=== PATIENT | male | born 1970 | race Caucasian/White ===

== ENCOUNTER 2019-09-27 22:06 | Observation (INO) ==
[2019-09-27] MEDS ORDERED: ALUM/MAG/SIMETH/LIDO VISC 1:1 30 ML BOTTLE PO STA (22:29)
[2019-09-27] MEDS ORDERED: SODIUM CHLORIDE 0.9% 500 ML IV STA (22:29)
[2019-09-27] MEDS ORDERED: PANTOPRAZOLE 40 MG VIAL IV STA (22:29)
[2019-09-27] MEDS ORDERED: HYDROmorphone 2 MG/1 ML VIAL IV STA (22:29)
[2019-09-27] MEDS ORDERED: ONDANSETRON 4 MG/2 ML VIAL IV STA (22:29)
[2019-09-27 22:36] LABS: Basophils % 0.5 % (0.0-0.8); Eosinophils # 0.1 10*3/uL (0.0-0.87); Eosinophils % 1.2 % (0.00-10.9); Hemoglobin 14.1 GM/DL (14.0-18.0); Immature Granulocytes % 0.1 %; Immature Granulocytes Absolute 0.01 #; Lymphocytes # 2.5 10*3/uL (1.4-4.0); Lymphocytes % 33.7 % (21.2-54.2); Mean Corpuscular HGB Conc 32.8 GM/DL (32-36); Mean Corpuscular Volume 88.3 FL (87-102); Monocytes % 11.2 % (1.7-12.7); Neutrophils % 53.3 % (38.7-73.9); Platelet Count 235 T/CUMM (130-400); Red Blood Count 4.87 MC/CUMM (3.8-5.5); Red Cell Distribution Width 12.5 % (9.3-17.3); White Blood Count 7.4 T/CUMM (4-12)
[2019-09-27] MEDS ORDERED: KETOROLAC 30 MG/1 ML VIAL ONE (22:37)
[2019-09-27] MEDS ORDERED: KETOROLAC 30 MG/1 ML VIAL IV STA (22:38)
[2019-09-27 22:57] LABS: Alanine Aminotransferase 33 U/L (16-61); Albumin 3.9 G/DL (3.4-5.0); Alkaline Phosphatase 80 U/L (45-117); Amylase 35 U/L (25-115); Aspartate Amino Transferase 22 U/L (0-37); Blood Urea Nitrogen 26 MG/DL (7-18); Calcium 8.4 MG/DL (8.5-10.1); Estimated Glom Filtration Rate 75 ML/MIN; Glucose 107 MG/DL (74-106); Osmolality,Calculated 283.4 MOS/KG (273-304); Total Protein 7.5 G/DL (6.4-8.3); Troponin I < 0.015 NG/ML (0.00-0.045)
[2019-09-27 23:24] LABS: Apearance,Urine Clear (Clear); Urine Color Yellow (Yellow); Urine Specific Gravity 1.031 (1.001-1.035)
[2019-09-27 23:25] LABS: Bilirubin,Urine Negative (Negative); Blood, Urine Negative (Negative); Glucose,Urine (UA) Negative (Negative); Ketones,Urine Negative (Negative); Nitrite,Urine Negative (Negative); Protein,Urine Negative; Urine Urobilinogen 0.2 EU/DL (0.2-1.0)
[2019-09-28] MEDS ORDERED: POTASSIUM CHLORIDE 20 MEQ TABLET PO STA (00:05)
[2019-09-28] MEDS ORDERED: ONDANSETRON 4 MG/2 ML VIAL IV PRN (01:03)
[2019-09-28] MEDS ORDERED: HYDROmorphone 2 MG/1 ML VIAL IV PRN (01:03)
[2019-09-28] MEDS ORDERED: ACETAMINOPHEN 325 MG TABLET PO PRN (01:03)
[2019-09-28] MEDS: SODIUM CHLORIDE 0.9% 1,000 ML IV SCH ×3 (01:30→18:01)
[2019-09-28 06:30] LABS: Basophils % 0.5 % (0.0-0.8); Eosinophils # 0.1 10*3/uL (0.0-0.87); Eosinophils % 1.5 % (0.00-10.9); Hematocrit 40.1 VOL% (42.0-52.0); Immature Granulocytes % 0.4 %; Immature Granulocytes Absolute 0.02 #; Lymphocytes # 2.1 10*3/uL (1.4-4.0); Mean Corpuscular HGB Conc 32.4 GM/DL (32-36); Mean Corpuscular Volume 89.9 FL (87-102); Mean Platelet Volume 11.2 FL (9.6-12.0); Monocytes % 11.3 % (1.7-12.7); Neutrophils % 48.3 % (38.7-73.9); Platelet Count 193 T/CUMM (130-400); Red Blood Count 4.46 MC/CUMM (3.8-5.5); Red Cell Distribution Width 12.6 % (9.3-17.3); White Blood Count 5.5 T/CUMM (4-12)
[2019-09-28 07:12] LABS: Albumin 3.4 G/DL (3.4-5.0); Bilirubin,Total 0.9 MG/DL (0.2-1.0); Calcium 7.9 MG/DL (8.5-10.1); Total Protein 6.4 G/DL (6.4-8.3)
[2019-09-28] MEDS ORDERED: cefOXitin 2,000 MG in SYRINGE 1 EACH IV ONE (07:24)
[2019-09-28] MEDS ORDERED: PANTOPRAZOLE 40 MG VIAL IV SCH (09:00)
[2019-09-28] MEDS ORDERED: TISSUE ADHESIVE 1 EACH APPLICATOR TOP ONE (10:23)
[2019-09-28] MEDS ORDERED: LIDOCAINE 1%/EPI INJ 20 ML VIAL ONE (10:24)
[2019-09-28] MEDS ORDERED: propofoL 200 MG/20 ML VIAL IV ONE (11:54)
[2019-09-28] MEDS ORDERED: LIDOCAINE 2% 5 ML VIAL ONE (11:54)
[2019-09-28] MEDS ORDERED: fentaNYL 100 MCG/2 ML VIAL ONE (11:54)
[2019-09-28] MEDS ORDERED: SEVOFLURANE 1 UNIT/15 MINUTE INH ONE (11:54)
[2019-09-28] MEDS ORDERED: MIDAZOLAM 2 MG/2 ML VIAL ONE (11:54)
[2019-09-28] MEDS ORDERED: KETOROLAC 30 MG/1 ML VIAL ONE (11:55)
[2019-09-28] MEDS ORDERED: NEOSTIGMINE 10 MG/10 ML VIAL ONE (11:55)
[2019-09-28] MEDS ORDERED: SUCCINYLCHOLINE 200 MG/10 ML VIAL ONE (11:55)
[2019-09-28] MEDS ORDERED: GLYCOPYRROLATE 0.4 MG/2 ML VIAL ONE (11:55)
[2019-09-28] MEDS ORDERED: ROCURONIUM 100 MG/10 ML VIAL IV ONE (11:55)
[2019-09-28] MEDS ORDERED: ONDANSETRON 4 MG/2 ML VIAL ONE (11:55)
[2019-09-28 16:37] VITALS: BP 126/73
== END 2019-09-28 18:55 | disposition home or self-care (01) ==
LOC: N.EDINP 22:06 → N.ED 22:06 → N.TELEN 09-28 00:58
PROVIDERS: ADMIT Surgery; ATTEND Surgery
PROC: LAPCHOL (2019-09-28 10:55)

== ENCOUNTER 2021-02-27 16:21 | Inpatient (IN) ==
[2021-02-27] MEDS ORDERED: ACETAMINOPHEN 500 MG TABLET PO STA (23:18)
[2021-02-27] MEDS ORDERED: SODIUM CHLORIDE 0.9% 500 ML IV STA (23:18)
[2021-02-27] MEDS ORDERED: PIPERACILLIN/TAZOBACTAM 3,375 MG in SODIUM CHLORIDE 0.9% 100 ML IV STA (23:34)
[2021-02-27 23:58] LABS: Basophils % 0.3 % (0.0-0.8); Eosinophils # 0.1 10*3/uL (0.0-0.87); Eosinophils % 1.4 % (0.00-10.9); Hematocrit 36.4 VOL% (42.0-52.0); Hemoglobin 12.1 GM/DL (14.0-18.0); Immature Granulocytes % 0.4 %; Immature Granulocytes Absolute 0.04 #; Lymphocytes # 1.3 10*3/uL (1.4-4.0); Lymphocytes % 12.9 % (21.2-54.2); Mean Corpuscular HGB Conc 33.2 GM/DL (32-36); Mean Corpuscular Volume 85.6 FL (87-102); Mean Platelet Volume 10.7 FL (9.6-12.0); Monocytes % 14.3 % (1.7-12.7); Neutrophils % 70.7 % (38.7-73.9); Platelet Count 350 T/CUMM (130-400); Red Blood Count 4.25 MC/CUMM (3.8-5.5); Red Cell Distribution Width 12.5 % (9.3-17.3); White Blood Count 9.7 T/CUMM (4-12)
[2021-02-28 00:29] LABS: Bacteria,Urine Occasional /HPF (Few); Blood, Urine Negative (Negative); Glucose,Urine (UA) Negative (Negative); Ketones,Urine 20 mg/dL (Negative); Mucus,Urine Many /LPF (Occasional); Nitrite,Urine Negative (Negative); Protein,Urine 100 MG/DL; RBC,Urine 10 /HPF (0-4); Squamous Epithelial Cell,Urine Occasional /HPF (0-10); Urine Appearance CLEAR (Clear); Urine Color Amber (Yellow); Urine Specific Gravity 1.025 (1.001-1.035)
[2021-02-28 00:29] LABS: Albumin 2.6 G/DL (3.4-5.0); Calcium 8.2 MG/DL (8.5-10.1); Osmolality,Calculated 270.1 MOS/KG (273-304); Potassium 3.3 MMOL/L (3.5-5.1); Total Protein 7.1 G/DL (6.4-8.2)
[2021-02-28 00:32] LABS: Bilirubin,Urine Small mg/dL (Negative)
[2021-02-28 01:01] LABS: Sedimentation Rate-Westergren 87 MM/HR (0-20)
[2021-02-28] MEDS ORDERED: ENOXAPARIN 100 MG/ML SYRINGE SUBCUT STA (02:08)
[2021-02-28] MEDS ORDERED: GLUCAGON 1 MG VIAL IM PRN (02:43)
[2021-02-28] MEDS ORDERED: guaiFENesin/DM ER 600-30 MG TABLET PO PRN (02:45)
[2021-02-28] MEDS ORDERED: MORPHINE 2 MG/1 ML SYRINGE IV PRN (02:45)
[2021-02-28] MEDS ORDERED: ONDANSETRON 4 MG/2 ML VIAL IV PRN (02:45)
[2021-02-28] MEDS ORDERED: SIMETHICONE CHEW 125 MG TABLET PO PRN (02:45)
[2021-02-28] MEDS ORDERED: guaiFENesin/CODEINE 5 ML LIQUID PO PRN (02:51)
[2021-02-28] MEDS ORDERED: DEXTROSE 50% 25 GM/50 ML SYRINGE IV PRN (02:57)
[2021-02-28 02:59] LABS: INR 1.1; PT Patient Result 12.2 SECS (10.5-12.0); Partial Thromboplastin Time 22.5 SECS (23.8-32.1)
[2021-02-28] MEDS: SODIUM CHLORIDE 0.9% 1,000 ML IV SCH ×3 (03:03→22:40)
[2021-02-28] MEDS: DOCUSATE SODIUM 100 MG CAPSULE PO SCH ×3 (03:03→23:17)
[2021-02-28 04:46] LABS: Basophils % 0.1 % (0.0-0.8); Eosinophils # 0.2 10*3/uL (0.0-0.87); Eosinophils % 1.7 % (0.00-10.9); Hematocrit 35.5 VOL% (42.0-52.0); Hemoglobin 11.6 GM/DL (14.0-18.0); Immature Granulocytes % 0.4 %; Immature Granulocytes Absolute 0.04 #; Lymphocytes # 1.5 10*3/uL (1.4-4.0); Lymphocytes % 15.5 % (21.2-54.2); Mean Corpuscular HGB Conc 32.7 GM/DL (32-36); Mean Corpuscular Volume 87.2 FL (87-102); Mean Platelet Volume 10.9 FL (9.6-12.0); Monocytes % 15.4 % (1.7-12.7); Neutrophils % 66.9 % (38.7-73.9); Platelet Count 333 T/CUMM (130-400); Red Blood Count 4.07 MC/CUMM (3.8-5.5); Red Cell Distribution Width 12.4 % (9.3-17.3); White Blood Count 9.4 T/CUMM (4-12)
[2021-02-28 05:16] LABS: Calcium 8.3 MG/DL (8.5-10.1); Potassium 3.3 MMOL/L (3.5-5.1)
[2021-02-28] MEDS: PIPERACILLIN/TAZOBACTAM 3,375 MG in SODIUM CHLORIDE 0.9% 100 ML IV SCH ×2 (08:25→18:00)
[2021-02-28] MEDS: PANTOPRAZOLE 40 MG TABLET PO SCH (09:45)
[2021-02-28] MEDS: ENOXAPARIN 100 MG/ML SYRINGE SUBCUT SCH (18:00)
[2021-02-28] MEDS ORDERED: REMDESIVIR 200 MG in SODIUM CHLORIDE 0.9% 210 ML IV ONE (18:30)
[2021-02-28] MEDS: ACETAMINOPHEN 325 MG TABLET PO PRN (21:07)
[2021-03-01] MEDS: PIPERACILLIN/TAZOBACTAM 3,375 MG in SODIUM CHLORIDE 0.9% 100 ML IV SCH ×3 (02:09→15:36)
[2021-03-01] MEDS: ENOXAPARIN 100 MG/ML SYRINGE SUBCUT SCH (05:42)
[2021-03-01 06:04] LABS: Basophils % 0.2 % (0.0-0.8); Eosinophils # 0.1 10*3/uL (0.0-0.87); Eosinophils % 0.9 % (0.00-10.9); Hematocrit 33.5 VOL% (42.0-52.0); Hemoglobin 10.8 GM/DL (14.0-18.0); Immature Granulocytes % 0.6 %; Immature Granulocytes Absolute 0.07 #; Lymphocytes # 1.2 10*3/uL (1.4-4.0); Lymphocytes % 10.7 % (21.2-54.2); Mean Corpuscular HGB Conc 32.2 GM/DL (32-36); Mean Corpuscular Volume 87.2 FL (87-102); Mean Platelet Volume 10.8 FL (9.6-12.0); Monocytes % 10.6 % (1.7-12.7); Platelet Count 352 T/CUMM (130-400); Red Blood Count 3.84 MC/CUMM (3.8-5.5); Red Cell Distribution Width 12.4 % (9.3-17.3); White Blood Count 10.8 T/CUMM (4-12)
[2021-03-01 06:20] LABS: Albumin 1.9 G/DL (3.4-5.0); Bilirubin,Total 1.1 MG/DL (0.20-1.00); Calcium 8.5 MG/DL (8.5-10.1); Osmolality,Calculated 270.8 MOS/KG (273-304); Potassium 3.3 MMOL/L (3.5-5.1); Total Protein 6.7 G/DL (6.4-8.2)
[2021-03-01 06:21] LABS: Ferritin 846.5 ng/mL (26-388)
[2021-03-01] MEDS: PANTOPRAZOLE 40 MG TABLET PO SCH (08:31)
[2021-03-01] MEDS: DOCUSATE SODIUM 100 MG CAPSULE PO SCH ×2 (08:35→22:25)
[2021-03-01] MEDS: POTASSIUM CHLORIDE 20 MEQ TABLET PO PRN ×3 (10:09→16:30)
[2021-03-01] MEDS: REMDESIVIR 100 MG in SODIUM CHLORIDE 0.9% 100 ML IV SCH (12:29)
[2021-03-01] MEDS: DEXAMETHASONE 4 MG TABLET PO SCH (15:35)
[2021-03-01] MEDS: ACETAMINOPHEN 325 MG TABLET PO PRN (16:54)
[2021-03-01] MEDS: APIXABAN 5 MG TABLET PO SCH (22:25)
[2021-03-01] MEDS: SODIUM CHLORIDE 0.9% 1,000 ML IV SCH ×2 (23:23→23:24)
[2021-03-02] MEDS: PIPERACILLIN/TAZOBACTAM 3,375 MG in SODIUM CHLORIDE 0.9% 100 ML IV SCH ×2 (00:07→09:18)
[2021-03-02 05:49] LABS: Basophils % 0.1 % (0.0-0.8); Hematocrit 33.3 VOL% (42.0-52.0); Hemoglobin 10.7 GM/DL (14.0-18.0); Immature Granulocytes % 0.7 %; Immature Granulocytes Absolute 0.08 #; Lymphocytes # 0.9 10*3/uL (1.4-4.0); Lymphocytes % 7.7 % (21.2-54.2); Mean Corpuscular HGB Conc 32.1 GM/DL (32-36); Mean Corpuscular Volume 88.1 FL (87-102); Mean Platelet Volume 10.6 FL (9.6-12.0); Monocytes % 7.9 % (1.7-12.7); Neutrophils % 83.6 % (38.7-73.9); Platelet Count 378 T/CUMM (130-400); Red Blood Count 3.78 MC/CUMM (3.8-5.5); Red Cell Distribution Width 12.6 % (9.3-17.3); White Blood Count 11.8 T/CUMM (4-12)
[2021-03-02 06:08] LABS: Albumin 1.9 G/DL (3.4-5.0); Bilirubin,Total 0.4 MG/DL (0.20-1.00); Calcium 8.1 MG/DL (8.5-10.1); Ferritin 910.3 ng/mL (26-388); Osmolality,Calculated 274.8 MOS/KG (273-304); Potassium 4.1 MMOL/L (3.5-5.1); Total Protein 6.8 G/DL (6.4-8.2)
[2021-03-02] MEDS: APIXABAN 5 MG TABLET PO SCH ×2 (09:21→21:55)
[2021-03-02] MEDS: PANTOPRAZOLE 40 MG TABLET PO SCH (09:21)
[2021-03-02] MEDS: DOCUSATE SODIUM 100 MG CAPSULE PO SCH ×2 (09:21→21:55)
[2021-03-02] MEDS: DEXAMETHASONE 4 MG TABLET PO SCH (09:24)
[2021-03-02] MEDS: DOXYCYCLINE HYCLATE 100 MG CAPSULE PO SCH ×2 (11:25→21:55)
[2021-03-02] MEDS: REMDESIVIR 100 MG in SODIUM CHLORIDE 0.9% 100 ML IV SCH (11:25)
[2021-03-02] MEDS: AZITHROMYCIN 250 MG TABLET PO SCH (11:25)
[2021-03-03 05:40] LABS: Basophils % 0.1 % (0.0-0.8); Eosinophils % 0.1 % (0.00-10.9); Hematocrit 31.9 VOL% (42.0-52.0); Hemoglobin 10.3 GM/DL (14.0-18.0); Immature Granulocytes % 0.6 %; Lymphocytes # 1.8 10*3/uL (1.4-4.0); Lymphocytes % 11.2 % (21.2-54.2); Mean Corpuscular HGB Conc 32.3 GM/DL (32-36); Mean Corpuscular Volume 89.6 FL (87-102); Mean Platelet Volume 10.7 FL (9.6-12.0); Monocytes % 9.2 % (1.7-12.7); Neutrophils % 78.8 % (38.7-73.9); Platelet Count 384 T/CUMM (130-400); Red Blood Count 3.56 MC/CUMM (3.8-5.5); Red Cell Distribution Width 12.7 % (9.3-17.3); White Blood Count 15.7 T/CUMM (4-12)
[2021-03-03 06:02] LABS: Ferritin 997.1 ng/mL (26-388)
[2021-03-03 06:03] LABS: Albumin 1.9 G/DL (3.4-5.0); Bilirubin,Total 0.6 MG/DL (0.20-1.00); Calcium 7.9 MG/DL (8.5-10.1); Osmolality,Calculated 282.1 MOS/KG (273-304); Potassium 3.8 MMOL/L (3.5-5.1); Total Protein 6.3 G/DL (6.4-8.2)
[2021-03-03] MEDS: SODIUM CHLORIDE 0.9% 1,000 ML IV SCH ×3 (07:53→19:40)
[2021-03-03] MEDS: DEXAMETHASONE 4 MG TABLET PO SCH (08:01)
[2021-03-03] MEDS: PANTOPRAZOLE 40 MG TABLET PO SCH (08:01)
[2021-03-03] MEDS: AZITHROMYCIN 250 MG TABLET PO SCH (08:01)
[2021-03-03] MEDS: APIXABAN 5 MG TABLET PO SCH ×2 (08:01→20:59)
[2021-03-03] MEDS: DOXYCYCLINE HYCLATE 100 MG CAPSULE PO SCH ×2 (08:01→20:59)
[2021-03-03] MEDS: DOCUSATE SODIUM 100 MG CAPSULE PO SCH ×2 (08:01→20:59)
[2021-03-03] MEDS: REMDESIVIR 100 MG in SODIUM CHLORIDE 0.9% 100 ML IV SCH (09:40)
[2021-03-04] MEDS: SODIUM CHLORIDE 0.9% 1,000 ML IV SCH ×2 (02:42→12:11)
[2021-03-04 06:43] LABS: Basophils % 0.2 % (0.0-0.8); Eosinophils % 0.1 % (0.00-10.9); Hemoglobin 10.9 GM/DL (14.0-18.0); Immature Granulocytes % 0.8 %; Lymphocytes % 15.6 % (21.2-54.2); Mean Corpuscular HGB Conc 32.1 GM/DL (32-36); Mean Corpuscular Volume 89.5 FL (87-102); Mean Platelet Volume 10.7 FL (9.6-12.0); Monocytes % 10.2 % (1.7-12.7); Neutrophils % 73.1 % (38.7-73.9); Platelet Count 446 T/CUMM (130-400); Red Cell Distribution Width 12.7 % (9.3-17.3)
[2021-03-04 07:03] LABS: Ferritin 1156.8 ng/mL (26-388)
[2021-03-04 07:04] LABS: Albumin 2.2 G/DL (3.4-5.0); Bilirubin,Total 0.4 MG/DL (0.20-1.00); Calcium 8.7 MG/DL (8.5-10.1); Osmolality,Calculated 277.4 MOS/KG (273-304); Potassium 3.7 MMOL/L (3.5-5.1); Total Protein 6.9 G/DL (6.4-8.2)
[2021-03-04] MEDS: REMDESIVIR 100 MG in SODIUM CHLORIDE 0.9% 100 ML IV SCH (09:28)
[2021-03-04] MEDS: DEXAMETHASONE 4 MG TABLET PO SCH (09:29)
[2021-03-04] MEDS: DOCUSATE SODIUM 100 MG CAPSULE PO SCH (09:29)
[2021-03-04] MEDS: PANTOPRAZOLE 40 MG TABLET PO SCH (09:29)
[2021-03-04] MEDS: APIXABAN 5 MG TABLET PO SCH (09:29)
[2021-03-04] MEDS: DOXYCYCLINE HYCLATE 100 MG CAPSULE PO SCH (09:30)
[2021-03-04] MEDS: AZITHROMYCIN 250 MG TABLET PO SCH (13:00)
[2021-03-04 16:25] VITALS: BP 116/65
== END 2021-03-04 17:34 | disposition home or self-care (01) | DRG 177 ==
LOC: N.ED 16:21 → SUATTDRO 02-28 02:43 → N.EDINP 02-28 02:43 → N.3E 02-28 23:08
PROVIDERS: ADMIT Emergency Medicine; ATTEND Internal Medicine